=== PATIENT | male | born 2000 | race Caucasian/White ===

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

== ENCOUNTER 2022-01-08 00:10 | Day surgery (SDC) | payer BC, SELFPAY ==
[2021-12-30 11:26] VITALS: BMI 27.8
--- NOTE | 2021-12-30 11:33 | PC.NURSE ---
Report to the Outpatient Waiting Room, entrance under the green pavilion located off [facility], at time 0600 on date 01/08/22. OR Time: 0730. - You and your visitor will be asked a series of questions to screen for COVID 19 for your protection. - Only one visitor is allowed at this time. - The patient visitor is requested to leave or wait in car when not with patient. - A mask is required within the hospital. Patients may have clear liquids (water, carbonated beverages, clear teas, apple juice) until 3 hours prior to surgery with a maximum of 20 ounces. - No food from midnight until time of surgery Take the following medications with a SIP of water the morning of surgery: NONE Medications to discontinue per physician: NAPROXEN Date to take last dose: PER DR. FOWLER Please no make-up, nail azeri, hairspray, perfume, deodorant, or body powder the day of surgery. No jewelry (including any body piercings) or valuables the day of surgery, leave them at home. Please take a shower or bath the night before, or the morning of, surgery with an antibacterial soap. Wear comfortable, loose fitting clothing. - Jewelry must be removed prior to entering the operating room. Rings and piercings that are not removed may be cut off. - The hospital will not accept responsibility for valuables. - Please leave all valuables, including medications, at home the day of surgery. If you are going home after surgery, a licensed [employer] truck driver must drive you home. - NO public transportation without another adult. - We recommend that an adult stay with you for 24 hours following discharge. - We also recommend that you do not drive, make important decision, drink alcoholic beverages, or take any drugs that were not prescribed by your health care provider for at least 24 hours after your discharge time. Follow any additional instructions given to you from your surgeon. If you or anyone in your household have experienced Covid symptoms in the past week, please notify your surgeon or the nurse liaison at the phone number below for possible testing. Telephone instructions given to PT - SHADIA MENSAH and asked if any additional questions and then verbalized understanding. Patient advised to call surgeon office or pre surgery nurse liaison [phone] if any additional questions.
--- NOTE | 2022-01-07 10:41 | WPDANESEPPF ---
Anes - Initial Pre Proc Eval Procedure: Operation Date: 01/08/22 07:30 Proposed Procedures p Right Knee Arthroscopy - Martin Godlen MD <Mic Frost MD - Last Filed: 01/07/22 10:42> Date/Time: 01/07/22 10:41 <Mic Frost MD - Last Filed: 01/07/22 10:42> Surgeon: Martin Golden MD <Mic Frost MD - Last Filed: 01/07/22 10:42> Pre Op Diagnosis: right medial meniscus tear <Mci Frost MD - Last Filed: 01/07/22 10:42> Patient Data Age: 21 Gender: M Height: 1.8 m Weight: 90.72 kg <Mic Frost MD - Last Filed: 01/07/22 10:42> Allergies Allergy/AdvReac Type Severity Reaction Status Date / Time No Known Allergies Allergy Verified 12/30/21 11:25 <Mic Frost MD - Last Filed: 01/07/22 10:42> Home Medications Medication Instructions Recorded Confirmed Type cetirizine 10 mg tablet (Wal-Zyr 10 mg PO DAILY 12/30/21 12/30/21 History (cetirizine)) naproxen 250 mg tablet 250 mg PO BID PRN Pain 12/30/21 12/30/21 History chlorhexidine gluconate 4 % 1 applic topical ONCE #237 mL 01/01/22 Rx topical liquid (Hibiclens) <Mic Frost MD - Last Filed: 01/07/22 10:42> Patient hx anesthesia problems: none <Kevin Hall DO - Last Filed: 01/08/22 07:07> Family hx anesthesia problems: none <Kevin Hall DO - Last Filed: 01/08/22 07:07> Results Review: All pre-operative results and documents have been reviewed as part of the pre-operative evaluation. <Mic Frost MD - Last Filed: 01/07/22 10:42> PMFSH Past Medical History Medical History: Medical History (Updated 01/08/22 @ 07:07 by Kevin Hall DO) Medial meniscus tear Overweight (BMI 25.0-29.9) Seasonal allergies <Mic Frost MD - Last Filed: 01/07/22 10:42> Family History Family History: Family History Father Hypertension Mother Asthma Depression Lupus Arthritis, rheumatoid Raynauds disease Grandparent Heart disease Diabetes mellitus Hypertension ALS (amyotrophic lateral sclerosis) <Mic Frost MD - Last Filed: 01/07/22 10:42> Social History Social History: Social History Smoking status: Never smoker Second hand tobacco smoke exposure: No Alcohol intake: never Substance use: unknown Substance use type: does not use Living arrangements: with family Spiritual care concerns: No <Mic Frost MD - Last Filed: 01/07/22 10:42> Anes - Eval Final PreProcedure Day of Procedure 01/07/22 10:41 <Mic Frost MD - Last Filed: 01/07/22 10:42> Patient weight: overweight <Mic Frost MD - Last Filed: 01/07/22 10:42> Heart: regular rate and rhythm <Mic Frost MD - Last Filed: 01/07/22 10:42> Lungs: clear to auscultation and normal air movement <Mic Frost MD - Last Filed: 01/07/22 10:42> Airway: Mallampati scale class II <Mic Frost MD - Last Filed: 01/07/22 10:42> Neurological: alert and oriented <Mic Frost MD - Last Filed: 01/07/22 10:42> Last oral intake: >/= 8 hours <Mic Frost MD - Last Filed: 01/07/22 10:42> ASA classification: II <Mic Frost MD - Last Filed: 01/07/22 10:42> Emergent: no <Mic Frost MD - Last Filed: 01/07/22 10:42> Anesthetic plan: proceed <Mic Frost MD - Last Filed: 01/07/22 10:42> Anesthesia type and monitoring: general LMA <Mic Frost MD - Last Filed: 01/07/22 10:42> Results Review: All pre-operative results and documents have been reviewed as part of the pre-operative evaluation. <Mic Frost MD - Last Filed: 01/07/22 10:42> Informed Consent: The patient's anesthetic plan and its attendant risks and benefits were discussed with the patient/family/POA.
[2022-01-08] VITALS (8 sets, daily range): BP systolic 114–147; BP diastolic 53–81; PULSE 57–69; RESP 12–18; TEMP 36.1; O2SAT 99–100
[2022-01-08] MEDS: LACTATED RINGERS 1,000 ML 30 ML IV CONT ×2 (06:57→09:05)
[2022-01-08] MEDS: ACETAMINOPHEN 500 MG TABLET 1000 MG PO (06:58)
[2022-01-08] MEDS: CELECOXIB 200 MG CAPSULE PO (06:59)
--- NOTE | 2022-01-08 07:08 | PM.IMHP ---
H&P: HPI History of Present Illness Date/Time: 01/08/22 07:08 Chief Complaint: Pt presents with Right knee pain that has been present for ~5mo. He does not recall a specific injury but thinks it may be due to playing sports throughout the years. He was being seen by another Orthopedic Surgeon who ordered an MRI and administered an intra-articular cortisone injection on 10/06/21 which improved his pain for approximately2 weeks. His pain has returned but is not as severe as it was prior to the injection. At this time, he has pain along the infrapatellar region which radiates around the knee to the posterior aspect. He takes Naproxen, occasionally, but not regularly. He also utilizes a knee brace at times. Previous provider also recommended a right knee arthroscopy, however, pt would like to continue w/ conservative tx, if able. He has not yet done Physical Therapy. Involved knee: right Onset: gradual Timin-6 months Description of injury: unknown-possible repeated sports activities Location of pain: medial, lateral, anterior, posterior, inferior and diffuse Character: radiating and throbbing Timing of pain: constant Exacerbated by: kneeling, squatting, stairs, running, rotational activities and prolonged activity Relieved by: brace, elevation, ice, rest and NSAIDs Associated symptoms: Reports swelling, instability and stiffness History of occupational/recreational activity with repetitive motion: Yes Activity type: sport History of prior knee injury: No Review of Systems Constitutional: Constitutional: Reports no additional constitutional complaints Eyes: Eyes: Reports no additional eye complaints ENT: Reports system reviewed and no additional complaints, except as documented Respiratory: Respiratory: Reports no additional respiratory complaints Gastrointestinal: Gastrointestinal: Reports no additional gastrointestinal complaints Genitourinary: Genitourinary: Reports no additional male genitourinary complaints Musculoskeletal: Musculoskeletal: Reports no additional musculoskeletal complaints Integumentary/Breasts: Skin/Breast: Reports system reviewed and no additional complaints, except as docu Neurologic: Reports system reviewed and no additional complaints, except as documented PMFSH Past Medical History Medical History Medial meniscus tear Overweight (BMI 25.0-29.9) Seasonal allergies Family History Family History Father Hypertension Mother Asthma Depression Lupus Arthritis, rheumatoid Raynauds disease Grandparent Heart disease Diabetes mellitus Hypertension ALS (amyotrophic lateral sclerosis) Social History Social History Smoking status: Never smoker Second hand tobacco smoke exposure: No Alcohol intake: never Substance use: unknown Substance use type: does not use Living arrangements: with family Spiritual care concerns: No Meds Home Medications and Allergies Home Medications Medication Instructions Recorded Confirmed Type cetirizine 10 mg tablet (Wal-Zyr 10 mg PO DAILY 12/30/21 12/30/21 History (cetirizine)) naproxen 250 mg tablet 250 mg PO BID PRN Pain 12/30/21 12/30/21 History chlorhexidine gluconate 4 % 1 applic topical ONCE #237 mL 01/01/22 Rx topical liquid (Hibiclens) Allergies Allergy/AdvReac Type Severity Reaction Status Date / Time No Known Allergies Allergy Verified 12/30/21 11:25 Exam Extrem: Right lower extremity: knee Details: normal to inspection, tenderness, swelling, abnormal ROM, knee ligament exam normal and Fransisca's Test Details: positive medially and laterally; no ecchymosis Left lower extremity: full ROM and knee Details: normal ROM; no tenderness and no swelling Assessment and Plan Assessment and plan (1) Medial meniscus tear: Code(s): S83.249A - Othe
--- NOTE | 2022-01-08 07:15 | WPDHPUPDATE1 ---
History and Physical Update Update Date/Time: 01/08/22 07:15 History and Physical has been reviewed, including an updated exam of the patient. There are NO changes in the patient's condition. Risks, benefits, and alternatives have been discussed and questions answered. Patient agrees to proceed with procedure.
--- NOTE | 2022-01-08 07:26 | SUR.PREOP ---
PT STATES HE HAS CRUTCHES AND FEELS CONFIDENT ABOUT USING THEM
[2022-01-08] MEDS: ceFAZolin 2 GM/D5W 50 ML 2 GM/50 ML BAG IVPB (07:27)
[2022-01-08] MEDS: BUPIVACAINE HCL 0.5% PF 30 ML VIAL INFILTRATE (07:47)
--- NOTE | 2022-01-08 10:53 | W.PM.PROC2 ---
Procedure Note - Detailed Date of Procedure 01/08/22 Pre-op Diagnosis right medial meniscus tear Post-op Diagnosis Other (MEDIAL MENISCUS TEAR OF RED ZONE, ACL TEAR, LATERAL MENISCUS TEAR) Procedure Performed RIGHT KNEE SCOPE WITH PARTIAL MEDIAL MENISCECTOMY, PARTIAL LATERAL MENISCECTOMY, AND ACL DEBRIDEMENT Surgeon Martin Golden MD Anesthesia General Findings MEDIAL MENISCUS DETACHMENT AT THE MID SECTION AND ANTERIOR HORN, NEAR COMPLETE ACL TEAR, LATERAL MENISCUS ANTERIOR HORN TEAR Description of Procedure PATIENT WAS TAKEN TO THE OR. RIGHT LEG WAS PREPPED AND DRAPED STERILE. TROCARS WERE PLACED IN THE USUAL FASHION. CAMERA WAS INTRODUCED. THERE WAS MILD CHONDROMALACIA TO THE PATELLA FEMORAL JOINT. THERE WAS A LOT OF SYNOVITIS IN ALL COMPARTMENTS. THE MEDIAL COMPARTMENT SHOWED MILD CHONDROMALACIA TO THE MEDIAL FEMORAL CONDYLE. A SHAVER WAS USED TO PREFORM A CHONDROPLASTY. THERE WAS A COMPLEX MEDIAL MENISCUS TEAR TO THE ROOT OF THE MEDIAL MENISCUS. THE TEAR WAS SMALL. THE TEAR WAS RESECTED WITH A BITER AND A SHAVER DOWN TO A SMOOTH BASE. NEXT THE REST OF THE MENISCUS WAS EVALUATED. THERE WAS A TEAR AT THE MID SECTION JUST ANTERIOR TO THE POSTERIOR HORN CONTINUING ANTERIORLY INVOLVING ABOUT 30% OF THE MENISCUS. THE TEAR WAS IN THE RED ZONE. THERE NS SOME DETACHMENT WELL FROM THE CAPSULE. THERE WAS A LOT OF SYNOVITIS AROUND THE ANTERIOR MEDIAL CAPSULE WELL NEAR THE MENISCAL CAPSULE EDGE. THE ACL WAS IDENTIFIED. THERE WAS A NEAR COMPLETE TEAR OF THE ACL. THERE WAS SIGNIFICANT LAXITY WITH ANTERIOR DRAWER TESTING. THE ACL WAS DEBRIDED AND SYNOVECTOMY WAS PREFORMED. . THE LATERAL MENISCUS WAS TORN AT THE ANTERIOR HORN. THE TEAR WAS RESECTED. THE LAT COMPARTMENT HAD MINIMAL CHONDROMALACIA. CHONDROPLASTY WAS PREFORMED. A SYNOVECTOMY WAS PREFORMED WELL. THE PATELLO FEMORAL JOINT UNDERWENT CHONDROPLASTY. THERE WAS GRADE 2 CHONDROMALACIA IN PART OF THE PATELLA. SYNOVECTOMY WAS PREFORMED IN THE SUPERIOR MEDIAL COMPARTMENT. THE WOUNDS WERE APPROXIMATED WITH 4.0 NYLON. STERILE DRESSING WAS APPLIED. PATIENT WAS EXTUBATED. Estimated Blood Loss -15.0 Complications No immediate complications Condition Stable Disposition PACU
== END 2022-01-08 11:22 | disposition home or self-care (01) ==
PROVIDERS: PCP Physician Assistant; Visit Provider Orthopaedic Surgery
PROC: (CPT 29870; principal; 2022-01-08 07:30)
DX: M23.311 Other meniscus derangements, anterior horn of medial meniscus, right knee (principal); M23.341 Other meniscus derangements, anterior horn of lateral meniscus, right knee; M22.41 Chondromalacia patellae, right knee; M65.861 Other synovitis and tenosynovitis, right lower leg
CPT/HCPCS: 29880; A9270; J0690; J1100; J2250; J2405; J2704; J3010; J7120

== ENCOUNTER 2022-03-17 00:30 | Day surgery (SDC) | payer BC, SELFPAY ==
[2022-03-11 13:21] VITALS: BMI 28.5
--- NOTE | 2022-03-11 13:27 | PC.NURSE ---
Report to the Outpatient Waiting Room, entrance under the green pavilion located off [facility], at time __06:00AM on date ___3-09-23____. OR Time: ___07:30AM . Time changes happen often and if your time is changed the preop area will call you the afternoon before. - You and your visitor will be asked to self-screen and do not enter if you have any COVID symptoms. - Only one visitor and NO children visitors are allowed at this time. - The patient visitor is requested to leave or wait in car when not with patient due to restrictions. - A mask is required within the hospital. Patients may have clear liquids (water, carbonated beverages, clear teas, apple juice) until 3 hours prior to surgery with a maximum of 20 ounces. - No food from midnight until time of surgery - NOTHING TO DRINK AFTER 0430 Take the following medications with a SIP of water the morning of surgery: N/A Medications to discontinue per physician N/A Date to take last dose____N/A Please no make-up, nail maori, hairspray, perfume, deodorant, or body powder the day of surgery. No jewelry (including any body piercings) or valuables the day of surgery, leave them at home. Please take a shower or bath the night before, or the morning of, surgery with an antibacterial soap. Wear comfortable, loose fitting clothing. Children are encouraged to wear pajamas. - Jewelry must be removed prior to entering the operating room. Rings and piercings that are not removed may be cut off. - The hospital will not accept responsibility for valuables. - Please leave all valuables, including medications, at home the day of surgery. If you are going home after surgery, a licensed bulk driver must drive you home. - NO public transportation without another adult. - We recommend that an adult stay with you for 24 hours following discharge. - We also recommend that you do not drive, make important decision, drink alcoholic beverages, or take any drugs that were not prescribed by your health care provider for at least 24 hours after your discharge time. Follow any additional instructions given to you from your surgeon. If you or anyone in your household have experienced Covid symptoms in the past week, please notify your surgeon or the nurse liaison at the phone number below for possible testing. Telephone instructions given to ____PATIENT and asked if any additional questions and then verbalized understanding. Patient advised to call surgeon office or pre surgery nurse liaison [phone] if any additional questions.
--- NOTE | 2022-03-16 15:59 | P.PNAN_ITS ---
Anes - Initial Pre Proc Eval Procedure: Operation Date: 03/17/22 07:30 Proposed Procedures p Right Anterior Cruciate Ligament Reconstruction, Right Medial Meniscus Repair - Martin Golden MD Date/Time: 03/16/22 15:59 Surgeon: Martin Golden MD Pre Op Diagnosis: right ACL tear, right medial meniscus tear Patient Data Age: 21 Gender: M Height: 1.8 m Weight: 93 kg Allergies Allergy/AdvReac Type Severity Reaction Status Date / Time No Known Allergies Allergy Verified 03/17/22 06:46 Home Medications Medication Instructions Recorded Confirmed Type cetirizine 10 mg tablet (Wal-Zyr 10 mg PO DAILY 12/30/21 03/17/22 History (cetirizine)) naproxen 250 mg tablet 250 mg PO BID PRN Pain 12/30/21 03/17/22 History chlorhexidine gluconate 4 % 1 applic topical ONCE #237 mL 03/10/22 03/17/22 Rx topical liquid (Hibiclens) beclomethasone dipropionate 80 1 spray intranasal PRN 03/11/22 03/17/22 History mcg/actuation nasal HFA inhaler (QNASL) clobetasol 0.05 % scalp solution 1 applic topical DAILY 03/11/22 03/17/22 History Patient hx anesthesia problems: none Family hx anesthesia problems: none Results Review: All pre-operative results and documents have been reviewed as part of the pre- operative evaluation. [facility] Past Medical History Medical History Medial meniscus tear Overweight (BMI 25.0-29.9) Seasonal allergies Family History Family History Father Hypertension Mother Asthma Depression Lupus Arthritis, rheumatoid Raynauds disease Grandparent Heart disease Diabetes mellitus Hypertension ALS (amyotrophic lateral sclerosis) Social History Social History Smoking status: Never smoker Second hand tobacco smoke exposure: No Alcohol intake: never Substance use: never Substance use type: does not use Living arrangements: with family Spiritual care concerns: No Anes - Eval Final PreProcedure Day of Procedure 03/16/22 15:59 Patient weight: overweight Heart: regular rate and rhythm Lungs: clear to auscultation and normal air movement Airway: Mallampati scale class II Neurological: alert and oriented Last oral intake: >/= 8 hours ASA classification: II Emergent: no Anesthetic plan: proceed Anesthesia type and monitoring: general LMA Results Review: All pre-operative results and documents have been reviewed as part of the pre- operative evaluation. Informed Consent: The patient's anesthetic plan and its attendant risks and benefits were discussed with the patient/family/POA. Questions were solicited and answers provided to the satisfaction of the patient/family/POA.
--- NOTE | 2022-03-16 15:59 | WPDANESPNB ---
Anes - Peripheral Nerve Block Date/Time: 03/16/22 15:59 I have discussed with the patient/family/POA the placement of a peripheral nerve block for post-operative pain management, including associated risks, benefits, complications, and side effects. Alternative methods of post-operative analgesia were detailed. Questions were solicited and answers provided to the satisfaction of the patient/family/POA. Time-Out: A pre-procedural Time-Out was completed immediately before starting the procedure and confirmed: Patient Identification, Site, Procedure, Patient Position and the Availability of Requisite Equipment. Clinical Indications: Acute post-operative pain management requested by the operative surgeon. Nerve Block Insertion Note Anes-nerve block: adductor canal right Patient position: supine Skin prep: chlorhexidine Needle: 22 gauge, stimulating, insulated echogenic needle. Needle length: 80 mm Technique: ultrasound Technique comment: in plane Injectate: bupivacaine 0.5% with epi 5 mcg/ml (30cc) Observations: tolerated well Complications: none Procedure start time:: 730 Procedure end time:: 735
[2022-03-17] VITALS (9 sets, daily range): BP systolic 121–144; BP diastolic 63–79; PULSE 60–97; RESP 12–16; TEMP 36.8–37; O2SAT 97–100
[2022-03-17] MEDS: LACTATED RINGERS 1,000 ML 30 ML IV CONT ×2 (07:05→10:47)
[2022-03-17] MEDS: ACETAMINOPHEN 500 MG TABLET 1000 MG PO (07:06)
[2022-03-17] MEDS: CELECOXIB 200 MG CAPSULE PO (07:06)
--- NOTE | 2022-03-17 07:13 | WPDHPUPDATE1 ---
History and Physical Update Update Date/Time: 03/17/22 07:13 History and Physical has been reviewed, including an updated exam of the patient. There are NO changes in the patient's condition. Risks, benefits, and alternatives have been discussed and questions answered. Patient agrees to proceed with procedure.
[2022-03-17] MEDS: ceFAZolin 2 GM/D5W 50 ML 2 GM/50 ML BAG IVPB (07:43)
[2022-03-17] MEDS: BUPIVACAINE HCL 0.5% PF 30 ML VIAL INFILTRATE (10:11)
[2022-03-17] MEDS: TRANEXAMIC ACID 1,000 MG/10 ML AMPUL 1000 MG IV PUSH (10:19)
--- NOTE | 2022-03-17 10:54 | W.PM.PROC2 ---
Procedure Note - Detailed Date of Procedure 03/17/22 Pre-op Diagnosis right ACL tear, right medial meniscus tear Post-op Diagnosis Same Procedure Performed RIGHT KNEE ARTHROSCOPY WITH ACL RECONSTRUCTION, PARTIAL MEDIAL MENISCECTOMY AND MAJOR SYNOVECTOMY Surgeon Martin Golden MD Anesthesia General Description of Procedure PATIENT WAS TAKEN TO THE OR. GENERAL ANESTHESIA WAS INDUCED. THE RIGHT KNEE WAS TAKEN THROUGH A RANGE OF MOTION AND A PIVOT SHIFT TEST WAS PREFORMED AND THIS WAS POSITIVE. A LACHMANS TEST AND ANTERIOR DRAWER TESTS WERE ALSO PREFORMED AND BOTH SHOWED LAXITY OF THE ACL. THE LEFT LEG WAS PREPPED AND DRAPED STERILE. TROCARS WERE PLACED IN THE USUAL FASHION. CAMERA WAS INTRODUCED. THERE WAS MILD CHONDROMALACIA TO THE PATELLA FEMORAL JOINT. MOST OF THE LESION WAS ON THE PATELLAR SURFACE THERE WAS A LOT OF SYNOVITIS IN THIS COMPARTMENT WELL. THE MEDIAL COMPARTMENT SHOWED MILD CHONDROMALACIA TO THE MED FEMORAL CONDYLE. THER WAS SMALL TEAR TO THE ROOT OF THE MEDIAL MENISCUS. THIS WAS RESECTED. THE ORIGINAL TEAR TO THE MAIN BODY OF THE MENISCUS APPEARED TO BE HEALED IN THE RED ZONE AND SCAR TISSUE WAS OBSERVED. NEXT THE ACL WAS IDENTIFIED AND FOUND TO BE COMPLETELY TORN WITH ABUNDANT SCAR TISSUE AND SYNOVITIS ABOUT THE TEAR. THE LATERAL MENISCUS WAS NOT TORN. THE LATERAL COMPARTMENT HAD NO CHONDROMALACIA. THE ACL REMNANTS WERE THEN THEN DEBRIDED UNTIL THE PCL WAS IDENTIFIED AND THE SUPERIOR LATERAL NOTCH WAS IDENTIFIED. A NOTCH PLASTY WAS PREFORMED UNTIL THE OVER THE TOP POSITION WAS IDENTIFIED. A MEDIAL INCISION WAS MADE MEDIAL TO THE TIBIAL TUBERCLE AND DISSECTION CONTINUED DOWN TO BONE. A TIBIAL ACL GUIDE WAS PLACED UP AGAINST THE PCL AND WAS SET AT 55 DEG POSITION. A GUIDE PIN WAS DRILLED THROUGH THE GUIDE EXITING JUST ANTERIOR TO THE PCL STUMP. A 9 MM TIBIAL TUNNEL WAS DRILLED. A #7 BACK WALL GUIDE WAS PLACED OVER THE GUIDE PIN AT THE 10 O'CLOCK POSITION ON THE FEMUR. A 9 MM FEMORAL TUNNEL WAS DRILLED TO 25 MM. AN ALLOGRAFT ATTACHED TO A TIGHT ROPE SYSTEM. THE ALLOGRAFT WAS PASSED THROUGH THE TIBIAL AND FEMORAL TUNNELS. THE TIGHT ROPE WAS THEN TIGHTENED AND THE ENDO BUTTON WAS SECURED OVER THE SUPERIOR LATERAL FEMORAL CORTEX. WITH THE KNEE AT 30 DEG OF FLEXION AND TENSION ON THE TIBIAL SIDE OF THE ALLOGRAFT, A 20 MM BY 8 MM TISSUE INTERFERENCE SCREW WAS PLACED IN THE TIBIAL TUNNEL OVER A GUIDE WIRE. THE SCREW HAD AN EXCELLENT BITE. THE KNEE WAS TAKEN THROUGH A RANGE OF MOTION AND THE ACL WAS VERY STABLE. NEXT AN INTERNAL BRIDGE WAS PREFORMED USING A SWIVEL LOCK ANCHOR SYSTEM. SYNOVECTOMY WAS PREFORMED IN THE PATELLO FEMORAL JOINT AND IN THE MEDIAL COMPARTMENT. THEN THE PATELLA UNDERWENT CHONDROPLASTY. THE SURFACE WAS SMOOTH AND THE PATELLA TRACKED WITHOUT TILT. THE INSTRUMENTS WERE REMOVED AFTER THOROUGH IRRIGATION OF THE KNEE JOINT. THE WOUNDS WERE WASHED. THE TROCAR WOUNDS WERE APPROXIMATED WITH 4-0 NYLON. THE TIBIA WOUND WAS APPROXIMATED WITH 0 VICRYL, 2-0 VICRYL AND 3-0 QUILL SUTURE. THE WOUNDS WERE WASHED. DERMABOND WAS PLACED AND THEN A STERILE DRESSING WAS APPLIED. A BRACE WAS PLACED.PATIENT WAS EXTUBATED. Estimated Blood Loss -30.0 Drains No Complications No immediate complications Condition Stable Disposition PACU
[2022-03-17] MEDS: oxyCODONE HCL (*CRX) 5 MG TAB IR PO (11:46)
== END 2022-03-17 13:38 | disposition home or self-care (01) ==
PROVIDERS: PCP Physician Assistant; Visit Provider Orthopaedic Surgery
PROC: (CPT 29888; principal; 2022-03-17 07:30)
DX: S83.511A Sprain of anterior cruciate ligament of right knee, initial encounter (principal); S83.241A Other tear of medial meniscus, current injury, right knee, initial encounter; M65.861 Other synovitis and tenosynovitis, right lower leg; M22.41 Chondromalacia patellae, right knee; X58.XXXA Exposure to other specified factors, initial encounter; G89.18 Other acute postprocedural pain
CPT/HCPCS: 29881; 29888; 64447; A9270; C1713; J0690; J1100; J1170; J2250; J2405; J2704; J3010; J7120; L1830

== ENCOUNTER 2022-05-10 11:08 | Outpatient (CLI) | payer BC, SELFPAY ==
[2022-05-10 11:52] LABS: Basophils Percent Auto 0.4 % (0.2-1.2); Eosinophils Absolute Auto 0.2 K/mm3 (0-0.3); Eosinophils Percent Auto 1.8 % (0-4.4); Hematocrit 44.8 % (42.0-52.0); Immature Granulocyte Absolute 0.03 K/mm3 (0.00-0.031); Immature Granulocyte Percent A 0.3 % (0-0.5); Lymphocytes Absolute Auto 1.96 K/mm3 (0.9-3.2); Lymphocytes Percent Auto 20.7 % (18.3-44.2); Mean Corpuscular HGB Conc 33.5 g/dl (32-36); Mean Corpuscular Hemoglobin 28.6 pg (26-34); Mean Corpuscular Volume 85.5 fl (80-100); Monocytes Absolute Auto 0.7 K/mm3 (0.1-0.6); Neutrophils Absolute Auto 6.6 K/mm3 (1.3-6.7); Neutrophils Percent Auto 69.8 % (45.5-73.1); Platelet Count Result 342 k/mm3 (150-375); Red Blood Count 5.24 M/mm3 (4.6-6.20); Red Cell Distribution Width 12.6 % (11.5-14.5); White Blood Count 9.5 K/mm3 (4.5-10.0)
[2022-05-10 12:00] LABS: Alanine Aminotransferase 50 U/L (6-50); Albumin Level 4.7 g/dL (3.5-5.1); Alkaline Phosphatase 118 U/L (38-126); Anion Gap 10 mmol/L (8-16); Aspartate Amino Transferase 35 U/L (17-59); Bilirubin,Total 0.4 mg/dL (0.2-1.3); Blood Urea Nitrogen 19 mg/dL (9-20); Calcium 9.8 mg/dL (8.4-10.2); Carbon Dioxide 26 mmol/L (22-30); Chloride 104 mmol/L (98-107); Cholesterol 166 mg/dL (0-200); Estimated Glomerular Filt Rate > 60; Glucose 100 mg/dL (65-110); HDL Direct 38 mg/dL; Potassium 4.7 mmol/L (3.4-5.0); Sodium 140 mmol/L (137-145); Triglycerides 64 mg/dL (<150)
[2022-05-10 12:11] LABS: LDL Cholesterol Direct 104 mg/dL
[2022-05-10 13:06] LABS: Folic Acid 7.4 ng/mL (2.76->20)
== END 2022-05-10 11:09 | disposition home or self-care (01) ==
PROVIDERS: PCP Physician Assistant; Visit Provider Physician Assistant
DX: Z00.00 Encounter for general adult medical examination without abnormal findings (principal); R55 Syncope and collapse; Z82.69 Family history of other diseases of the musculoskeletal system and connective tissue
CPT/HCPCS: 36415; 80053; 80061; 82607; 82746; 84443; 85025; 86038; 86039

== ENCOUNTER 2022-05-10 15:13 | Outpatient (CLI) | payer BC, SELFPAY ==
[2022-05-13 13:53] LABS: Alpha 1 Globulin 0.4 g/dL (0.2-0.3); Beta 1 Globulin 0.5 g/dL (0.4-0.6); Gamma Globulin 1.7 g/dL (0.8-1.7); Protein, Total 8.1 g/dL (6.1-8.1)
== END 2022-05-10 15:14 | disposition home or self-care (01) ==
LOC: ANHLAB 15:15
PROVIDERS: PCP Physician Assistant; Visit Provider Physician Assistant
DX: R77.8 Other specified abnormalities of plasma proteins (principal)
CPT/HCPCS: 36415; 84155; 84165

== ENCOUNTER 2022-05-26 07:44 | Outpatient (CLI) | payer BC, SELFPAY ==
--- NOTE | 2022-05-26 07:48 | ECHO_ITS ---
Patient Info Name: Michael Atkins Age: 22 years : 2000 Gender: Male Ht: 71 in Wt: 200 lbs BSA: 2.15 m2 HR: 81 bpm BP: 123 / 77 mmHg Heart Rhythm: Sinus Rhythm Technical Quality: Fair Exam Date: 05/26/2022 7:57 AM Exam Location: [facility] Patient Status: Outpatient Admit Date: 05/26/2022 Staff Ordering Physician: Placido Tinajero PA-C [place]ar Operator: Aggie Block RDCS Attending Provider: Placido Tinajero PA-C Referring Physician: Tanvi CASTILLO; Exam Type: CA echo doppler color flow Study Info Indications R55 - Syncope and collapse Complete two-dimensional, color flow and Doppler transthoracic echocardiogram is performed. Summary 1. Complete two-dimensional, color flow and Doppler transthoracic echocardiogram is performed. 2. Left ventricular chamber dimension is normal. 3. Left ventricular systolic function is normal, estimated at 60-65%. 4. The left ventricular diastolic function is normal. 5. E/e' 5 is not elevated. 6. No pulmonary hypertension, estimated pulmonary arterial systolic pressure is 21 mmHg. 7. There is trace pulmonic regurgitation. Left Ventricle E/e' 5 is not elevated. Left ventricular chamber dimension is normal. Left ventricular systolic function is normal, estimated at 60-65%. The left ventricular diastolic function is normal. Right Ventricle Right ventricular systolic function is normal and with normal TAPSE 2.5 cm. Right ventricular chamber dimension is normal. Left Atria Left atrial chamber dimension is normal. Right Atria Right atrial chamber dimension is normal. Aortic Valve The aortic valve is trileaflet. There is no aortic valve stenosis. There is no aortic valve regurgitation. Pulmonic Valve There is trace pulmonic regurgitation. Mitral Valve There is no mitral valve stenosis. There is no mitral valve regurgitation. Tricuspid Valve There is no tricuspid valve regurgitation. No pulmonary hypertension, estimated pulmonary arterial systolic pressure is 21 mmHg. Pericardium/Pleural There is no pericardial effusion. Inferior Vena Cava Normal inferior vena cava with >50% collapse upon inspiration consistent with normal right atrial pressure, 5 mmHg. Aorta The aortic root size at the sinus of Valsalva is normal. Left Ventricular Outflow Tract Name Value Normal LVOT 2D LVOT Diameter 2.0 cm LVOT Doppler LVOT Peak Gradient 3 mmHg LVOT Mean Gradient 2 mmHg LVOT VTI 17 cm LVOT VTI/AV VTI Ratio 0.7 LVOT Stroke Volume 55 ml LVOT CO 3.7 l/min LVOT CI 1.7 l/min/m2 Pulmonic Valve Name Value Normal RVOT Doppler RVOT Peak Gradient 3 mmHg
--- NOTE | 2022-05-26 07:49 | ECG_ITS ---
Measurements Intervals [place] Rate: 73 P: 65 FL: 160 QRS: 12 QRSD: 97 T: 42 QT: 352 QTc: 388 Interpretive Statements SINUS RHYTHM NO PREVIOUS ECG AVAILABLE FOR COMPARISON Electronically Signed On 05-26-2022 15:06:38 PIPE INSPECTOR by Micheline Subramanian M.D.
== END 2022-05-26 07:45 | disposition home or self-care (01) ==
LOC: ANHCARD 07:45
PROVIDERS: PCP Physician Assistant; Visit Provider Physician Assistant
DX: R55 Syncope and collapse (principal)
CPT/HCPCS: 93005; 93306

== ENCOUNTER 2023-02-02 17:16 | Outpatient (RCR) | payer OTHER, SELFPAY ==
[2023-02-02 18:05] LABS: Hematocrit 41.1 % (42.0-52.0); Hemoglobin 13.6 g/dL (14.0-18.0); Mean Corpuscular HGB Conc 33.1 g/dl (32-36); Mean Corpuscular Hemoglobin 28.5 pg (26-34); Mean Corpuscular Volume 86.2 fl (80-100); Mean Platelet Volume 9.3 fl (7.4-10.4); Platelet Count Result 326 k/mm3 (150-375); Red Blood Count 4.77 M/mm3 (4.6-6.20); Red Cell Distribution Width 13.4 % (11.5-14.5); White Blood Count 9.2 K/mm3 (4.5-10.0)
[2023-02-02 18:15] LABS: Alanine Aminotransferase 33 U/L (6-50); Albumin Level 4.3 g/dL (3.5-5.1); Alkaline Phosphatase 83 U/L (38-126); Anion Gap 8 mmol/L (8-16); Aspartate Amino Transferase 40 U/L (17-59); Bilirubin,Total 0.4 mg/dL (0.2-1.3); Blood Urea Nitrogen 24 mg/dL (9-20); Calcium 9.4 mg/dL (8.4-10.2); Carbon Dioxide 24 mmol/L (22-30); Chloride 105 mmol/L (98-107); Estimated Glomerular Filt Rate > 60; Glucose 102 mg/dL (65-110); Potassium 3.6 mmol/L (3.4-5.0); Sodium 137 mmol/L (137-145)
== END 2023-05-03 23:59 | disposition home or self-care (01) ==
LOC: ANHLAB 17:16
PROVIDERS: PCP Physician Assistant
DX: Z51.81 Encounter for therapeutic drug level monitoring (principal); Z79.899 Other long term (current) drug therapy
CPT/HCPCS: 36415; 80053; 85027

== ENCOUNTER 2023-11-19 12:14 | Emergency (ER) | payer OTHER, SELFPAY | END 2023-11-19 12:15 | disposition left against medical advice (07) | LOC: EXPGOSH 12:17 | PROVIDERS: Emergency Provider Nurse Practitioner | DX: Z53.21 Procedure and treatment not carried out due to patient leaving prior to being seen by health care provider (principal) | CPT/HCPCS: 99199 ==

== ENCOUNTER 2023-11-19 12:22 | Emergency (ER) | payer OTHER, SELFPAY ==
[2023-11-19 12:24] VITALS: BP 121/67; PULSE 66; RESP 16; TEMP 36.8; O2SAT 98
--- NOTE | 2023-11-19 12:30 | ED.DENTAL ---
HPI - Dental/Oral General Chief complaint: Dental/Oral Stated complaint: Swollen Lip/Cheek Time Seen by Provider: 11/19/23 12:38 Mode of arrival: ambulatory Limitations: no limitations History of Present Illness HPI Narrative: 23-year-old male presents with concern for lower lip swelling on the left side. Reports he woke up this morning with his left lower lip swollen. Reports it states swollen for a few hours, he took a Benadryl which made to swelling mostly go away. He reports this has happened 2 other times of the last 3 weeks on different areas of his lips, it has always been unilateral and either on the top or the bottom. He has never experienced any tongue swelling, trouble breathing, rash or other allergic reaction symptoms. He denies any known triggers or known allergens. He denies dental pain. Denies any pain in the swollen area Related Data Home Medications Medication Instructions Recorded Confirmed cetirizine 10 mg tablet (Wal-Zyr 10 mg PO DAILY 12/30/21 11/19/23 (cetirizine)) clobetasol 0.05 % scalp solution 1 applic topical DAILY 03/11/22 11/19/23 folic acid 1 mg tablet 1 mg PO DAILY 10/27/23 11/19/23 meloxicam 15 mg tablet 15 mg PO DAILY 10/27/23 11/19/23 methotrexate sodium 2.5 mg tablet 2.5 mg PO WEEKLY 10/27/23 11/19/23 Allergies Allergy/AdvReac Type Severity Reaction Status Date / Time No Known Allergies Allergy Verified 11/19/23 12:23 Review of Systems Review of Systems: CONSTITUTIONAL: Denies malaise, chills, sweats, or fever. EYES: Denies visual changes ENT: Denies rhinorrhea, congestion, sinus pain, otalgia or sore throat. Reports left lower lip swelling CARDIOVASCULAR: Denies chest pain, palpitations RESPIRATORY: Denies cough or dyspnea. SKIN: Denies rash or itching. MUSCULOSKELETAL: Denies myalgia. NEUROLOGIC: Denies numbness, weakness, or headache. All systems reviewed & are unremarkable except as noted in HPI and below PMFSH Past Medical History Medical History Medial meniscus tear Overweight (BMI 25.0-29.9) Seasonal allergies Syncope and collapse Surgical History Surgical History S/P ACL reconstruction Family History Family History Father Hypertension Mother Asthma Depression Lupus Arthritis, rheumatoid Raynauds disease Grandparent Heart disease Diabetes mellitus Hypertension ALS (amyotrophic lateral sclerosis) Social History Social History Smoking status: Never smoker Second hand tobacco smoke exposure: No Alcohol intake: never Substance use: never Substance use type: does not use Lack of Transportation: No Lack of Food: Never True Current Housing: I Have Housing Concerned About Future Housing: No Difficulty Paying Gas/Electric Bills: No Difficulty Paying for Meds: No Currently Unemployed: No Education: High School Diploma/GED Difficulty w/ Childcare or Family Care: No Living arrangements: with family Spiritual care concerns: No Comments At time of signature, agree with nursing past medical, surgical, social and family history. There is no relevant family history pertinent to the presenting complaint Exam Narrative: GENERAL: Well-appearing, well-nourished, and in no acute distress. HEAD: Normocephalic, atraumatic. EYES: PERRLA, sclera clear ENT: Nares clear, turbinates pink, no rhinorrhea or epistaxis. Mucous membranes moist. Oropharynx without erythema or lesions. Tonsils not enlarged and without exudate. No lip swelling noted at this time NECK: Supple. No lymphadenopathy. CHEST: No respiratory distress. Speaks in full sentences. HEART: Regular rate and rhythm. SKIN: Warm, dry, no visible rash. NEURO: Alert and oriented x3. PSYCH: Normal mood and affect Course Course
== END 2023-11-19 12:54 | disposition home or self-care (01) ==
PROVIDERS: Emergency Provider Nurse Practitioner
DX: R22.0 Localized swelling, mass and lump, head (principal)
CPT/HCPCS: 99211; G0463

== ENCOUNTER 2023-11-29 16:48 | Outpatient (CLI) | payer OTHER, SELFPAY ==
[2023-11-29 17:13] LABS: Hematocrit 44.8 % (42.0-52.0); Hemoglobin 15.3 g/dL (14.0-18.0); Mean Corpuscular HGB Conc 34.2 g/dl (32-36); Mean Corpuscular Hemoglobin 29.5 pg (26-34); Mean Corpuscular Volume 86.5 fl (80-100); Mean Platelet Volume 9.2 fl (7.4-10.4); Platelet Count Result 271 k/mm3 (150-375); Red Blood Count 5.18 M/mm3 (4.6-6.20); Red Cell Distribution Width 12.9 % (11.5-14.5); White Blood Count 9.1 K/mm3 (4.5-10.0)
[2023-11-29 17:28] LABS: Alanine Aminotransferase 43 U/L (6-50); Albumin Level 4.7 g/dL (3.5-5.1); Alkaline Phosphatase 105 U/L (38-126); Anion Gap 9 mmol/L (4-12); Aspartate Amino Transferase 33 U/L (17-59); Bilirubin,Total 0.4 mg/dL (0.2-1.3); Blood Urea Nitrogen 21 mg/dL (9-20); Calcium 9.1 mg/dL (8.4-10.2); Carbon Dioxide 23 mmol/L (22-30); Chloride 106 mmol/L (98-107); Estimated Glomerular Filt Rate > 60; Glucose 100 mg/dL (65-110); Potassium 3.9 mmol/L (3.4-5.0); Sodium 138 mmol/L (137-145)
[2023-11-29 17:52] LABS: Erythrocyte Sedimentation Rate 17 mm/hr (0-20)
== END 2023-11-29 16:49 | disposition home or self-care (01) ==
DX: L40.50 Arthropathic psoriasis, unspecified (principal); Z79.899 Other long term (current) drug therapy
CPT/HCPCS: 36415; 80053; 85027; 85652